=== PATIENT | male | born 1940 | race Caucasian/White ===

== ENCOUNTER 2018-02-07 15:23 | Inpatient (IN) | payer OTHER ==
--- OUTSIDE RECORDS SUMMARY | 2018-02-07 15:25 | XMS REPORT | Clinical Summary ---
:1940 Author Organization [facility] Address [address] [place] [address] Care Team Providers Name Role Phone Asked, No Pcp Primary Care Provider Unavailable Allergies Active Allergy Reactions Severity Noted Date Comments Lisinopril Hives, Itching High 06/24/2016 Penicillins 06/24/2016 Weakness in Limbs Current Medications Prescription Sig. Disp. Refills Start Date End Date Status isosorbide mononitrate Take 20 mg by Active (ISMO,MONOKET) 20 MG mouth 2 (two) tablet times a day. nitroglycerin Place 0.4 mg Active (NITROSTAT) 0.4 MG SL under the tongue tablet every 5 (five) minutes as needed for chest pain. omega-3 acid ethyl Take 1 g by mouth Active esters (LOVAZA) 1 gram 2 (two) times a capsule day. ranitidine (ZANTAC) 150 Take 150 mg by Active MG tablet mouth daily. cholecalciferol, Take 2,000 Units Active vitamin D3, (VITAMIN by mouth 2 (two) D3) 2,000 unit capsule times a day. capsule vitamin E 400 UNIT Take 400 Units by Active capsule mouth daily. warfarin (COUMADIN) 6 Take 6 mg by Active MG tablet mouth daily. amLODIPine (NORVASC) 10 Take 10 mg by Active mg tablet mouth daily. lysine (L-LYSINE) 500 Take 500 mg by Active mg tablet mouth daily. valsartan-hydrochloroth Take 1 tablet by Active iazide (DIOVAN HCT) mouth daily. 320-25 mg per tablet GLUCOSAMINE HCL/CHONDR Take 1 tablet by Active PORTILLO A NA (OSTEO BI-FLEX mouth 2 (two) ORAL) times a day. metoprolol tartrate Take 25 mg by Active (LOPRESSOR) 25 mg mouth daily. tablet metFORMIN (GLUCOPHAGE) Take 500 mg by Active 500 mg tablet mouth 2 (two) times a day with meals. amIODarone (PACERONE) Take 2 tablets 60 tablet 1 11/18/2016 Active 200 MG tablet (400 mg total) by mouth daily. 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 06/24/2016 Family History Medical History Relation Name Comments No Known Problems Father Relation Name Status Comments Father Social History Tobacco Use Types Packs/Day Years Used Date Never Smoker Alcohol Use Drinks/Week oz/Week Comments No Sex Assigned at Date Recorded Not on file Last Filed Vital Signs Not on file Plan of Treatment Health Maintenance Due Date Last Done Comments DIABETIC FOOT EXAM 1949 DIABETIC RETINAL EYE EXAM 1949 URINE MICROALBUMIN 1949 SHINGRIX VACCINE (#1) 1989 ZOSTER VACCINE 1999 PNEUMOCOCCAL POLYSACCHARIDE VACCINE AGE 65 AND OVER 2004 PNEUMOCOCCAL-13 2004 INFLUENZA VACCINE 02/22/2018 Implants Implanted 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I 08/24/20192087TC/52 / Implanted: 11/17/2016 (Quantity not on file) Leads or N/A MEDICAL [id number] / Electrodes or [id number] Accessories Envlp Impl Crdvrtr Dfb Antbctrl Fully Resorb Lg Aigissrx R - [id number] Cardiovascular N/A: TYRX PHARMA [id number] / Implanted: 11/17/2016 (Quantity not on file) Implants N/A INC / Defibrillator [place] - [id number] - [id number] Defibrillator N/A: [facility] TRACI 03/24/2018 [id number] / Implanted: Qty: 1 on 06/28/2016 by Jaycob Ghosh MD ICD Devices N/A MEDICAL [facility] [id number] / [id number] Durata Df4 - Active Tbp Single Shock, Icd Leads, Model 7120q-65 - [id number] Defibrillators N/A: [employer]I 08/24/2016 7120Q 65 / Implanted: 06/28/2016 (Quantity not on file) Devices ICD and N/A MEDICAL [id number] / Related Products [id number] Results Not on fileafter 02/06/2017 Insurance Payer Benefit Plan / Group Subscriber ID Type Phone Address MEDICARE MEDICARE PART A AND B xxxxxxxxxx Medicare [place], [place] AETNA AETNA [facility] INDEMNITY xxxxxxxxxx Indemnity Home: Dario HANDLEY [phone] [id number]
[2018-02-07] MEDS ORDERED: ONDANSETRON 4 MG/2 ML VIAL ONE (16:32)
[2018-02-07] MEDS ORDERED: NA CHLORIDE 0.9% 1,000 ML ONE (16:32)
[2018-02-07] MEDS ORDERED: FENTANYL CITR 100 MCG/2 ML ONE (16:32)
[2018-02-07 16:53] LABS: Absolute Lymphocytes (CBC) 1.1 K/uL (0.7-4.9); Absolute Monocytes 0.7 K/uL (0.1-1.3); Absolute Neutrophil 8.5 K/uL (1.8-8.0); Basophils % 0.7 % (0-1.3); Eosinophils % 0.4 % (0-4.4); Hematocrit 43.8 % (39.6-49.0); Lymphocytes % 10.1 % (15.3-44.8); MCV 97.3 fL (80-100); MPV 8.9 fL (7.6-11.3); Monocytes % 6.8 % (3.3-12.3)
[2018-02-07 16:57] LABS: Protime INR 1.57
[2018-02-07 17:21] LABS: Albumin 3.3 g/dL (3.4-5.0); Bilirubin Direct 0.2 mg/dL (0-0.2); Bilirubin Total 1.1 mg/dL (0.2-1.0); CKMB Creatine Kinase MB 2.1 ng/mL (0.3-3.6); Magnesium 2.2 mg/dL (1.8-2.4); Potassium 3.6 mmol/L (3.5-5.1)
--- NOTE | 2018-02-07 17:59 | EDPHYS ---
Physician Documentation [facility] Name: Sandro Leger Age: 77 yrs Sex: Male : 1940 Arrival Date: 02/07/2018 Time: 15:27 Bed 26 Private MD: ED Physician Kuldip Ibarra HPI: 02/07 16:23 This 77 yrs old Male presents to ER via EMS with complaints of tripped to rodolfo right hip. 16:23 The patient or guardian reports decreased range of motion, an injury, pain. sustained rodolfo from a fall. The complaints affect the right hip. Onset: The symptoms/episode began/occurred 2 day(s) ago. Modifying factors: The symptoms are alleviated by remaining still, the symptoms are aggravated by any movement, flexion, weight bearing. Associated signs and symptoms: Loss of consciousness: the patient experienced no loss of consciousness. Severity of symptoms: At their worst the symptoms were moderate, in the emergency department the symptoms are unchanged. The patient has not experienced similar symptoms in the past. Historical: - Allergies: 15:30 PENICILLINS; mg2 17:05 Lisinopril; mg2 - Home Meds: 15:30 Isosorbide Mononitrate Oral [Active]; Metformin Oral [Active]; Warfarin Oral [Active]; mg2 18:45 amiodarone 200 mg Oral tab once daily [Active]; atorvastatin 40 mg oral tab 1 tab once mg2 daily [Active]; valsartan-hydrochlorothiazide 320-12.5 mg oral tab 1 tab once daily [Active]; Eliquis 5 mg oral tab 1 tab 2 times per day [Active]; Bystolic 10 mg oral tab 1 tab once daily [Active]; 18:47 levothyroxine 25 mcg tab 1 tab once daily [Active]; mg2 - PMHx: 15:30 Diabetes - NIDDM; Hyperlipidemia; Hypertension; mg2 17:04 CVA; Myocardial infarction; mg2 - PSHx: 15:30 pacemaker; ICD; mg2 - Social history:: Smoking status: Patient/guardian denies using tobacco, Patient/guardian denies using alcohol, street drugs, IV drugs. - Ebola Screening: : No symptoms or risks identified at this time. - Family history:: not pertinent. ROS: 16:23 Constitutional: Negative for fever, chills, and weight loss, Eyes: Negative for injury, rodolfo pain, redness, and discharge, ENT: Negative for injury, pain, and discharge, Neck: Negative for injury, pain, and swelling, Cardiovascular: Negative for chest pain, palpitations, and edema, Respiratory: Negative for shortness of breath, cough, wheezing, and pleuritic chest pain, Abdomen/GI: Negative for abdominal pain, nausea, vomiting, diarrhea, and constipation, Back: Negative for injury and pain, : Negative for injury, bleeding, discharge, and swelling, Skin: Negative for injury, rash, and discoloration, Neuro: Negative for headache, weakness, numbness, tingling, and seizure, Psych: Negative for depression, anxiety, suicide ideation, homicidal ideation, and hallucinations, Allergy/Immunology: Negative for hives, rash, and allergies, Endocrine: Negative for neck swelling, polydipsia, polyuria, polyphagia, and marked weight changes, Hematologic/Lymphatic: Negative for swollen nodes, abnormal bleeding, and unusual bruising. 16:23 MS/extremity: Positive for decreased range of motion, pain, tenderness, of the right hip and right upper thigh. Exam: 16:23 Constitutional: This is a well developed, well nourished patient who is awake, alert, rodolfo and in no acute distress. Head/Face: Normocephalic, atraumatic. Eyes: Pupils equal round and reactive to light, extra-ocular motions intact. Lids and lashes normal. Conjunctiva and sclera are non-icteric and not injected. Cornea within normal limits. Periorbital areas with no swelling, redness, or edema. ENT: Nares patent. No nasal discharge, no septal abnormalities noted. Tympanic membranes are normal and external auditory canals are clear. Oropharynx with no redness, swelling, or masses, exudates, or evidence of obstruction, uvula midline. Mucous membranes moist. Neck: Trachea midline, no thyromegaly or masses palpated, and no cervical lymphadenopathy. Supple, full range of motion without nuchal rigidity, or vertebral point tenderness. No Meningismus. Chest/axilla: Normal chest wall appearance and motion. Nontender with no deformity. No lesions are appreciated. Cardiovascular: Regular rate and rhythm with a normal S1 and S2. No gallops, murmurs, or rubs. Normal PMI, no JVD. No pulse deficits. Respiratory: Lungs have equal breath sounds bilaterally, clear to auscultation and percussion. No rales, rhonchi or wheezes noted. No increased work of breathing, no retractions or nasal flaring. Abdomen/GI: Soft, non-tender, with normal bowel sounds. No distension or tympany. No guarding or rebound. No evidence of tenderness throughout. Back: No spinal tenderness. No costovertebral tenderness. Full range of motion. Male : Normal genitalia with no discharge or lesions. Skin: Warm, dry with normal turgor. Normal color with no rashes, no lesions, and no evidence of cellulitis. Neuro: Awake and alert, GCS 15, oriented to person, place, time, and situation. Cranial nerves II-XII grossly intact. Motor strength 5/5 in all extremities. Sensory grossly intact. Cerebellar exam normal. Normal gait. Psych: Awake, alert, with orientation to person, place and time. Behavior, mood, and affect are within normal limits. 16:23 Musculoskeletal/extremity: Extremities: noted in the right femoral area, right inguinal area and right hip: decreased ROM, pain, ROM: limited active range of motion due to pain, limited passive range of motion due to pain, Circulation is intact in all extremities. Sensation intact. Compartment Syndrome exam of affected extremity: is normal. DVT Exam: No signs of deep vein thrombosis. no swelling, negative Homans' sign noted on exam, no appreciated bluish discoloration, no erythema, no increased warmth, pain, tenderness. Vital Signs: 15:31 BP 158 / 100; Pulse 70; Resp 18; Temp 98.8; Pulse Ox 95% on R/A; Height 6 ft. 2 in. mg2 (187.96 cm); Pain 5/10; 16:57 BP 140 / 77; Pulse 70; Resp 18; Pulse Ox 100% ; Pain 3/10; mg2 18:26 BP 142 / 70; Pulse 70; Resp 18; Temp 97.7; Pulse Ox 96% on R/A; Pain 2/10; mg2 MDM: 15:37 Patient medically screened. [facility] 16:26 Data reviewed: vital signs, nurses notes, lab test result(s), EKG, radiologic studies, rodolfo plain films. 02/07 16:22 Order name: Basic Metabolic Panel; Complete Time: 17:54 [facility] 02/07 16:22 Order name: CBC with Diff; Complete Time: 17:54 [facility] 02/07 16:22 Order name: Ckmb; Complete Time: 17:54 [facility] 02/07 16:22 Order name: CPK; Complete Time: 17:54 [facility] 02/07 16:22 Order name: LFT's; Complete Time: 17:54 [facility] 02/07 16:22 Order name: Magnesium; Complete Time: 17:54 [facility] 02/07 16:22 Order name: NT PRO-BNP; Complete Time: 17:54 [facility] 02/07 16:22 Order name: PT-INR; Complete Time: 17:54 [facility] 02/07 16:22 Order name: Ptt, Activated; Complete Time: 17:54 [facility] 02/07 16:22 Order name: Troponin (emerg Dept Use Only); Complete Time: 17:54 [facility] 02/07 16:22 Order name: Type And Screen [facility] 02/07 18:07 Order name: Basic Metabolic Panel [facility] 02/07 18:07 Order name: Basic Metabolic Panel [facility] 02/07 18:07 Order name: CBC with Automated Diff [facility] 02/07 16:22 Order name: XRAY Chest (1 view) [facility] 02/07 16:22 Order name: EKG; Complete Time: 16:23 [facility] 02/07 16:22 Order name: Pelvis XRAY [facility] 02/07 16:22 Order name: Hip Right 2 View XRAY [facility] 02/07 18:07 Order name: CONS Physician Consult [facility] 02/07 18:07 Order name: CBC with Automated Diff [facility] 02/07 18:07 Order name: Troponin I [facility] 02/07 18:07 Order name: Troponin I [facility] 02/07 18:07 Order name: Troponin I [facility] 02/07 18:34 Order name: Urine Dipstick--Ancillary (enter results) 02/07 18:38 Order name: ABO/RH no charge [facility] 02/07 18:42 Order name: Urine Dipstick-Ancillary [facility] 02/07 16:22 Order name: Cardiac monitoring; Complete Time: 16:42 [facility] 02/07 16:22 Order name: EKG - Nurse/Tech; Complete Time: 16:42 [facility] 02/07 16:22 Order name: IV Saline Lock; Complete Time: 16:43 [facility] 02/07 16:22 Order name: Labs collected and sent; Complete Time: 16:43 [facility] 02/07 16:22 Order name: O2 Per Protocol; Complete Time: 16:43 [facility] 02/07 16:22 Order name: O2 Sat Monitoring; Complete Time: 16:43 [facility] 02/07 16:22 Order name: Urine Dipstick-Ancillary (obtain specimen); Complete Time: 18:52 [facility] 02/07 16:49 Order name: Labs - recollect needed 02/07 18:07 Order name: NPO EDMS 02/07 18:07 Order name: EKG Electrocardiogram [facility] 02/07 18:07 Order name: EKG Electrocardiogram [facility] 02/07 18:07 Order name: EKG Electrocardiogram [facility] 02/07 18:07 Order name: EKG Electrocardiogram [facility] 02/07 18:07 Order name: CONS Physician Consult ED[facility] Administered Medications: 16:43 Drug: Zofran 4 mg Route: IVP; Site: right antecubital; mg2 19:24 Follow up: Response: No adverse reaction; Nausea is decreased mg2 16:44 Drug: fentaNYL (PF) 25 mcg Route: IVP; Site: right antecubital; mg2 19:24 Follow up: Response: No adverse reaction; Pain is decreased mg2 16:45 Drug: NS 0.9% 1000 ml Route: IV; Rate: 125 ml/hr; Site: right antecubital; mg2 19:25 Follow up: Response: No adverse reaction; IV Status: Infusion continued upon transfer mg2 18:02 Drug: fentaNYL (PF) 25 mcg Route: IVP; Site: right antecubital; mg2 19:20 Follow up: Response: No adverse reaction; Pain is decreased mg2 Disposition: 02/07/18 17:58 Hospitalization ordered by Mehul Stern for Inpatient Admission. Preliminary diagnosis are Fall due to bumping against object, Displaced fracture of base of neck of right femur, Unspecified kidney failure. - Bed requested for Telemetry/MedSurg (Inpatient). - Status is Inpatient Admission. mg2 - Condition is Stable. - Problem is new. - Symptoms have improved. UTI on Admission? No Signatures: Dispatcher [employer] EDMS Analy Douglas Corey, MD MD cha Gardose, Michele, GREGORIO RN mg2 Corrections: (The following items were deleted from the chart) 18:45 15:30 Home Meds: lisinopril Oral; mg2 mg2 18:49 17:58 Hospitalization Ordered by Mehul Stern MD for Inpatient Admission. Preliminary bd diagnosis is Fall due to bumping against object; Displaced fracture of base of neck of right femur; Unspecified kidney failure. Bed requested for Telemetry/MedSurg (Inpatient). Status is Inpatient Admission. Condition is Stable. Problem is new. Symptoms have improved. UTI on Admission? No. rodolfo 19:54 18:49 02/07/2018 17:58 Hospitalization Ordered by Mehul Stern MD for Inpatient mg2 Admission. Preliminary diagnosis is Fall due to bumping against object; Displaced fracture of base of neck of right femur; Unspecified kidney failure. Bed requested for Telemetry/MedSurg (Inpatient). Status is Inpatient Admission. Condition is Stable. Problem is new. Symptoms have improved. UTI on Admission? No. bd
--- NOTE | 2018-02-07 17:59 | ER ---
Nurse's Notes [facility] Name: Sandro Leger Age: 77 yrs Sex: Male : 1940 Arrival Date: 02/07/2018 Time: 15:27 Bed 26 Private MD: Diagnosis: Fall due to bumping against object;Displaced fracture of base of neck of right femur;Unspecified kidney failure Presentation: 02/07 15:27 Presenting complaint: EMS states: the patient was walking and fell on the ground, mg2 sustained pain in the right hip. denies LOC and head injury. no nausea and vomiting. Transition of care: patient was not received from another setting of care. Onset of symptoms was February 07, 2018. Risk Assessment: Do you want to hurt yourself or someone else? Patient reports no desire to harm self or others. Initial Sepsis Screen: Does the patient meet any 2 criteria? No. Patient's initial sepsis screen is negative. Does the patient have a suspected source of infection? No. Patient's initial sepsis screen is negative. Care prior to arrival: None. 15:27 Method Of Arrival: EMS mg2 15:27 Acuity: ADAM 3 mg2 Historical: - Allergies: 15:30 PENICILLINS; mg2 17:05 Lisinopril; mg2 - Home Meds: 15:30 Isosorbide Mononitrate Oral [Active]; Metformin Oral [Active]; Warfarin Oral [Active]; mg2 18:45 amiodarone 200 mg Oral tab once daily [Active]; atorvastatin 40 mg oral tab 1 tab once mg2 daily [Active]; valsartan-hydrochlorothiazide 320-12.5 mg oral tab 1 tab once daily [Active]; Eliquis 5 mg oral tab 1 tab 2 times per day [Active]; Bystolic 10 mg oral tab 1 tab once daily [Active]; 18:47 levothyroxine 25 mcg tab 1 tab once daily [Active]; mg2 - PMHx: 15:30 Diabetes - NIDDM; Hyperlipidemia; Hypertension; mg2 17:04 CVA; Myocardial infarction; mg2 - PSHx: 15:30 pacemaker; ICD; mg2 - Social history:: Smoking status: Patient/guardian denies using tobacco, Patient/guardian denies using alcohol, street drugs, IV drugs. - Ebola Screening: : No symptoms or risks identified at this time. - Family history:: not pertinent. Screenin:32 Abuse screen: Denies threats or abuse. Denies injuries from another. Nutritional mg2 screening: No deficits noted. Tuberculosis screening: No symptoms or risk factors identified. Fall Risk Fall in past 12 months (25 points). Assessment: 15:49 General: Appears in no apparent distress. Behavior is calm, cooperative. Pain: mg2 Complains of pain in right hip Pain does not radiate. Pain currently is 5 out of 10 on a pain scale. Quality of pain is described as aching, Pain began suddenly, this morning Is intermittent, Alleviated by rest, Aggravated by increased activity, repositioning, weight bearing. Neuro: Level of Consciousness is awake, alert, obeys commands, Oriented to person, place, time. Cardiovascular: Capillary refill < 3 seconds Patient's skin is warm and dry. Respiratory: Airway is patent Respiratory effort is even, unlabored, Respiratory pattern is regular, symmetrical. GI: No signs and/or symptoms were reported involving the gastrointestinal system. : No signs and/or symptoms were reported regarding the genitourinary system. EENT: No signs and/or symptoms were reported regarding the EENT system. Derm: Skin is intact, Skin is pink, warm \T\ dry. normal. Musculoskeletal: Reports pain in right hip. Vital Signs: 15:31 BP 158 / 100; Pulse 70; Resp 18; Temp 98.8; Pulse Ox 95% on R/A; Height 6 ft. 2 in. mg2 (187.96 cm); Pain 5/10; 16:57 BP 140 / 77; Pulse 70; Resp 18; Pulse Ox 100% ; Pain 3/10; mg2 18:26 BP 142 / 70; Pulse 70; Resp 18; Temp 97.7; Pulse Ox 96% on R/A; Pain 2/10; mg2 ED Course: 15:27 Patient arrived in ED. mg2 15:29 Triage completed. mg2 15:32 Arm band placed on. mg2 15:37 Kuldip Ibarra MD is Attending Physician. [facility] 15:48 Boogie Ndiaye, GREGORIO is Primary Nurse. mg2 15:58 Patient has correct armband on for positive identification. Bed in low position. Side mg2 rails up X2. 16:12 Door closed. Warm blanket given. mg2 16:46 EKG done, by product safety technician. reviewed by Kuldip Ibarra MD. 3 17:49 XRAY Chest (1 view) In Process Unspecified. EDMS 17:49 Pelvis XRAY In Process Unspecified. EDMS 17:49 Hip Right 2 View XRAY In Process Unspecified. EDMS 17:55 Mehul Stern MD is Hospitalizing Provider. rodolfo 19:48 No provider procedures requiring assistance completed. Patient admitted, IV remains in mg2 place. Administered Medications: 16:43 Drug: Zofran 4 mg Route: IVP; Site: right antecubital; mg2 19:24 Follow up: Response: No adverse reaction; Nausea is decreased mg2 16:44 Drug: fentaNYL (PF) 25 mcg Route: IVP; Site: right antecubital; mg2 19:24 Follow up: Response: No adverse reaction; Pain is decreased mg2 16:45 Drug: NS 0.9% 1000 ml Route: IV; Rate: 125 ml/hr; Site: right antecubital; mg2 19:25 Follow up: Response: No adverse reaction; IV Status: Infusion continued upon transfer mg2 18:02 Drug: fentaNYL (PF) 25 mcg Route: IVP; Site: right antecubital; mg2 19:20 Follow up: Response: No adverse reaction; Pain is decreased mg2 Outcome: 17:58 Decision to Hospitalize by Provider. rodolfo 19:47 Admitted to Med/surg accompanied by tech, via stretcher, room 209, with chart, Report mg2 called to Nurse Erna 19:47 Condition: stable 19:47 Instructed on the need for admit, Demonstrated understanding of instructions. 19:54 Patient left the ED. mg2 Signatures: Dispatcher [employer] EDMS Kuldip Ibarra MD MD cha Gardose, Michele, RN RN mg2 Meg Rankin sm3 Corrections: (The following items were deleted from the chart) 17:05 15:27 Acuity: ADAM 4 mg2 mg2 18:34 18:26 Pulse 70bpm; Resp 18bpm; Pulse Ox 96% RA; Pain 2/10; mg2 mg2 18:45 15:30 Home Meds: lisinopril Oral; mg2 mg2
[2018-02-07] MEDS ORDERED: ACETAMINOPHEN 500 MG TAB PO PRN (18:02)
[2018-02-07] MEDS ORDERED: ONDANSETRON 4 MG/2 ML VIAL IV PRN (18:02)
[2018-02-07] MEDS ORDERED: D50W 25 GM/50 ML SYRINGE IV PRN (18:05)
[2018-02-07] MEDS ORDERED: GLUCAGON 1 MG/VIAL IM PRN (18:05)
--- NOTE | 2018-02-07 18:32 | RAD REPORT ---
EXAM DESCRIPTION: RAD - Chest Single View - 02/07/2018 5:49 pm CLINICAL HISTORY: Cough, shortness of breath COMPARISON: October 2016 TECHNIQUE: AP portable chest image was obtained 1719 hours . FINDINGS: No peripheral mass or consolidation. Left base is limited but no acute finding suspected. No failure or volume overload. Heart size is prominent but stable. Upper lobe vasculature within norm al limits. Right-sided pacemaker and left-sided defibrillator in place. Trachea is midline. No pneumo thorax or pleural effusion. Left costophrenic angle blunting is believed to be due to the heart size and may be pericardial fat. No gross bony abnormality seen. No acute aortic findings suspected. IMPRESSION: No acute cardiopulmonary process. Above detailed chest findings are similar to October 2016.
[2018-02-07 18:42] LABS: Urine Blood NEGATIVE (NEG); Urine Glucose 2+ (NEG); Urine Protein 1+ (NEG); Urine Specific Gravity >1.030 (1.005-1.030); Urine pH 5.5 (5.0-7.0)
[2018-02-07] MEDS: NA CHLORIDE 0.9% 1,000 ML IV SCH (19:00)
--- NOTE | 2018-02-07 19:07 | RAD REPORT ---
EXAM DESCRIPTION: RAD - Pelvis - 02/07/2018 5:49 pm CLINICAL HISTORY: Trauma, pelvic and hip pain, leg wound COMPARISON: None. TECHNIQUE: AP imaging of the pelvis was obtained. FINDINGS: Lower lumbar degenerative changes are present partially imaged. Minimal SI joint degenerat zuleyma changes are present. Sacral ala fracture is not identifiable. No fracture of the bony pelvis iden tifiable. Right inferior pubic ramus assessment is limited due to positioning. Advanced degenerative change seen at the left hip joint. There is partial flattening of the superior left femoral head. Degenerative cystic changes are seen and there is significant joint space narrowin g superiorly. Joint space narrowing and degenerative changes involve the right hip joint as well. Oblique fracture is present in the right femur. This is a predominantly intertrochanteric fracture. L hi trochanter remains attached to the femur. Femoral neck- shaft angle is diminished with superior migration of the main shaft of the femur. Pathologic process is not suspected. IMPRESSION: Right femur intertrochanteric fracture. No pelvic fractures suspected. Left greater than right hip joint degenerative changes are present.
--- NOTE | 2018-02-07 19:08 | RAD REPORT ---
EXAM DESCRIPTION: RAD - Hip Right 2 View - 02/07/2018 5:49 pm CLINICAL HISTORY: Trauma, pelvic and hip pain COMPARISON: None. FINDINGS: AP and cross-table lateral views were obtained. Cross-table imaging is limited. An oblique fracture is present at the base intertrochanteric junction. Fracture appears to be predominantly int ertrochanteric. No pathologic component. Right hip joint degenerative changes are present. No fractur e of the imaged portions right hemipelvis. IMPRESSION: Predominately intertrochanteric fracture right femur. No pathologic etiology suspected.
[2018-02-07] MEDS ORDERED: ACETAMINOPHEN 500 MG TAB ONE (19:45)
[2018-02-07] MEDS: INSULIN -REGULAR HUMAN 50 UNIT/0.5 ML ML SQ SCH (21:00)
--- NOTE | 2018-02-07 21:21 | P.HP ---
Certification for Inpatient Patient admitted to: Inpatient With expected LOS: >2 Midnights Practitioner: I am a practitioner with admitting privileges, knowledge of patient current condition, hospital course, and medical plan of care. Services: Services provided to patient in accordance with Admission requirements found in Title 42 Section 412.3 of the Code of Federal Regulations Patient History Date of Service: 02/07/18 Reason for admission: FELL ON RIGHT SIDE History of Present Illness: MR. FERGUSON HAS A FIB, HTN, MILD MEMORY LOSS, COMES WITH FALL ON R SIDE, TRIPPED ON AN ELEVATION IN THE YARD AND BROKE R HIP. Allergies lisinopril Allergy (Mild, Verified 02/07/18 20:17) Itching Penicillins Allergy (Mild, Verified 02/07/18 20:17) weakness Home Medications: Amiodarone HCl/D5w [Amiodarone 150 mg/100 ml-D5w] 200 mg PO DAILY 02/07/18 Apixaban [Eliquis] 5 mg PO BID 02/07/18 Atorvastatin Calcium [Lipitor] 40 mg PO BEDTIME 02/07/18 Isosorbide Mononitrate [Isosorbide Mononitrate ER] 60 mg PO DAILY 02/07/18 Levothyroxine [Synthroid*] 25 mcg PO DAILY 02/07/18 Metformin HCl 500 mg PO BID 6AM 6PM 02/07/18 Nebivolol HCl [Bystolic*] 10 mg PO DAILY 02/07/18 Valsartan/Hydrochlorothiazide [Valsartan-Hctz 320-12.5 mg Tab] 1 tab PO DAILY - Past Medical/Surgical History Has patient received pneumonia vaccine in the past: Yes Diabetic: Yes -: DM -: HTN -: DEMENTIA -: AR X3 -: CVA -: CATARACT SX - Social History Smoking Status: Never smoker Alcohol use: No CD- Drugs: No Caffeine use: Yes Place of Residence: Home Review of Systems 10-point ROS is otherwise unremarkable Musculoskeletal: Leg Pain, As per HPI Physical Examination - Vital Signs Temperature: 97.7 F Blood Pressure: 142/70 Pulse: 70 Respirations: 18 - Physical Exam General: Alert, Mild distress, Moderate distress HEENT: Atraumatic, PERRLA, Mucous membr. moist/pink, EOMI, Sclerae nonicteric Neck: Supple, 2+ carotid pulse no bruit, No LAD, Without JVD or thyroid abnormality Respiratory: Clear to auscultation bilaterally, Normal air movement Cardiovascular: Regular rate/rhythm, Normal S1 S2 Gastrointestinal: Normal bowel sounds, No tenderness Musculoskeletal: Other Integumentary: No rashes Neurological: Normal gait, Normal speech, Normal strength at 5/5 x4 extr, Normal tone, Normal affect Lymphatics: No axilla or inguinal lymphadenopathy - Studies Laboratory Data (last 24 hrs) 02/07/18 16:30: PT 18.6 H, INR 1.57, APTT 31.2 02/07/18 16:30: WBC 10.4, Hgb 14.9, Hct 43.8, Plt Count 219 02/07/18 16:30: Sodium 137, Potassium 3.6, BUN 17, Creatinine 1.60 H, Glucose 180 H, Magnesium 2.2, Total Bilirubin 1.1 H, AST 33, ALT 40, Alkaline Phosphatase 68 Assessment and Plan - Problems (Diagnosis) (1) Hip fracture requiring operative repair Current Visit: Yes Status: Acute Plan: SURGERY IN AM ELIQUIS ON HOLD AFTER THIS AM DOSE 24 HOUR HOLDING SHOULD BE OKAY FOR SURGERY CHECK FOR BMD Qualifiers: Encounter type: initial encounter Fracture type: closed Laterality: right Qualified Code(s): S72.001A - Fracture of unspecified part of neck of right femur, initial encounter for closed fracture (2) A-fib Current Visit: Yes Status: Chronic Plan: CONTROLLED. Qualifiers: Atrial fibrillation type: chronic Qualified Code(s): I48.2 - Chronic atrial fibrillation (3) HTN (hypertension) Current Visit: Yes Status: Chronic (4) Preop cardiovascular exam Current Visit: Yes Status: Acute Plan: MILD TO MODERATE RISK FOR SURGERY FROM AGE AND COMORBIDITIES. HE HAS NO ACUTE CARDIAC SYMPTOMS. - Advance Directives Does patient have a Living Will: No Does patient have a Durable POA for Healthcare: Yes
[2018-02-07] MEDS: FAMOTIDINE 20 MG/2 ML VIAL IV SCH (22:03)
[2018-02-08] MEDS: FENTANYL CITR 100 MCG/2 ML IV PRN ×3 (00:36→10:56)
[2018-02-08] MEDS: NA CHLORIDE 0.9% 1,000 ML IV SCH ×2 (04:38→17:12)
[2018-02-08] MEDS: METFORMIN HCL 500 MG TAB PO SCH ×2 (05:11→17:12)
--- NOTE | 2018-02-08 06:02 | EKG ---
Test Date: 2018-02-07 Test Time: 16:39:15 Hunter Guide: SANDHYA MEASUREMENT RESULTS: Intervals: Rate: 70 NH: QRSD: 162 QT: 554 QTc: 598 Baker: P: 115 NH: QRS: 186 T: 62 INTERPRETIVE STATEMENTS: AV dual-paced rhythm Biventricular pacemaker detected Abnormal ECG Compared to ECG 11/10/2016 23:26:50 Sinus rhythm no longer present First degree AV block no longer present Left-axis deviation no longer present Left ventricular hypertrophy no longer present Early repolarization no longer present Myocardial infarct finding no longer present Electronically Signed On 02-08-18 06:02:15 CDT by Andrez Bradley
[2018-02-08 06:35] LABS: Absolute Lymphocytes (CBC) 1.6 K/uL (0.7-4.9); Absolute Monocytes 1.3 K/uL (0.1-1.3); Absolute Neutrophil 7.5 K/uL (1.8-8.0); Basophils % 0.8 % (0-1.3); Eosinophils % 0.4 % (0-4.4); Hematocrit 40.1 % (39.6-49.0); Lymphocytes % 14.9 % (15.3-44.8); MCH 33.5 pg (27.0-35.0); MCV 95.7 fL (80-100); MPV 8.9 fL (7.6-11.3); Monocytes % 12.3 % (3.3-12.3); RBC Red Blood Cell Count 4.18 M/uL (4.33-5.43)
[2018-02-08 07:04] LABS: Potassium 3.3 mmol/L (3.5-5.1)
[2018-02-08] MEDS: INSULIN -REGULAR HUMAN 50 UNIT/0.5 ML ML SQ SCH ×4 (07:30→21:00)
--- NOTE | 2018-02-08 08:35 | ECHO ---
HEIGHT: 6 ft 1 in WEIGHT: 220 lb 9.6 oz DATE OF STUDY: 02/08/[address]: Andrez Bradley MD 2-DIMENSIONAL: YES M.MODE: YES DOPPLER: YES COLOR FLOW: YES TDS: NO PORTABLE: NO DEFINITY: NO BUBBLE STUDY: NO DIAGNOSIS: CONGESTIVE HEART FAILURE, CORONARY ARTERY DISEASE CARDIAC HISTORY: CATHERIZATION: SURGERY: PROSTHETIC VALVE: PACEMAKER: YES MEASUREMENTS (cm) DIASTOLIC (NORMALS) SYSTOLIC (NORMALS) IVSd 1.4 (0.6-1.2) LA Diam 6.2 (1.9-4.0) LVEF 40-45% LVIDd 4.7 (3.5-5.7) LVIDs 3.6 (2.0-3.5) %FS 23% LVPWd 1.3 (0.6-1.2) Ao Diam 4.3 (2.0-3.7) 2 DIMENSIONAL ASSESSMENT: RIGHT ATRIUM: DILATED LEFT ATRIUM: DILATED RIGHT VENTRICLE: PACEMAKER CATHETER LEFT VENTRICLE: LEFT VENTRICULAR HYPERTROPHY TRICUSPID VALVE: NORMAL MITRAL VALVE: NORMAL PULMONIC VALVE: NORMAL AORTIC VALVE: NORMAL PERICARDIAL EFFUSION: NONE AORTIC ROOT: NORMAL LEFT VENTRICULAR WALL MOTION: POSTERIOBASAL AKINESIS. DOPPLER/COLOR FLOW: MILD MITRAL REGURGITATION. COMMENTS: DEPRESSED LEFT VENTRICULAR EJECTION FRACTION WITH WALL MOTION ABNORMALITY. DILATED LEFT AND RIGHT ATRIUM. PACEMAKER CATHETER IN RIGHT VENTRICLE. LEFT VENTRICULAR HYPERTROPHY. MILD MITRAL REGURGITATION. TECHNOLOGIST: Neva BRAVO
[2018-02-08] MEDS: NEBIVOLOL HCL 20 MG TABLET PO SCH (09:06)
[2018-02-08] MEDS: LOSARTAN POTASSIUM 50 MG TABLET PO SCH (09:07)
[2018-02-08] MEDS: ISOSORBIDE MONO SR 60 MG TAB PO SCH (09:07)
[2018-02-08] MEDS: LEVOTHYROXINE SOD 0.05 MG TABLET PO SCH (09:07)
[2018-02-08] MEDS: FAMOTIDINE 20 MG/2 ML VIAL IV SCH ×2 (09:07→21:14)
[2018-02-08] MEDS: AMIODARONE HCL 200 MG TAB PO SCH (09:08)
--- NOTE | 2018-02-08 09:35 | EKG ---
Test Date: 2018-02-08 Test Time: 07:56:56 Farm Contractor: LAURA MEASUREMENT RESULTS: Intervals: Rate: 70 CT: 104 QRSD: 164 QT: 544 QTc: 587 [place]: P: 3 CT: 104 QRS: 241 T: 91 INTERPRETIVE STATEMENTS: AV sequential or dual chamber electronic pacemaker Compared to ECG 02/07/2018 16:39:15 no significant change from previous ECG Electronically Signed On 02-08-18 09:35:26 CDT by Andrez Bradley
--- NOTE | 2018-02-08 12:25 | CON ---
History Of Present Illness: This is a 77-year-old man. He is in the hospital because he fell, his r ight hip or upper femur not the femoral neck appears to have a fracture, open reduction and internal fixation is the likely recommendation from Orthopedic Surgery, although I have not seen their notes a s of yet. I am asked to evaluate his heart before he goes through surgery. Mr. Leger has a hi story of CAD. He has had atrial fibrillation. He has had coronary bypass surgery. The patient is d emented, cannot give a cogent history. He denies having bypass surgery, but we know from old records it has been done. He has sternal wires. He also has depressed ejection fraction, and he has a defi brillator. The defibrillator was implanted June 2016 since then always followups with Dr. Mckeon. Dr. Mckeon is kindly looking into his records to see what the status of the defibrillator is. The p atient denies having chest pain or shortness of breath. He does not use tobacco now, did remotely. Home Medications: Have been amiodarone 200 mg, metformin, isosorbide, atorvastatin, valsartan, hydro chlorothiazide, apixaban, nebivolol, and levothyroxine. Physical Examination: General: Mr. Leger is alert, but he is very confused, does not have a memory for any details. Several details that I know were true he had forgotten for example the bypass surgery. Neck: He does not have a carotid bruit. Lungs: Clear. Heart: Reveals a laterally displaced apical impulse. There is no significant murmur. Abdomen: Soft. Extremities: Trace edema. There are cutaneous changes of chronic venous stasis. Distal pulses dimi nished. His electrocardiogram shows sequential AV pacing and the pacemaker appears to be biventricular pacing , although the QRS complex is still quite wide. His chest x-ray reveals an old pacemaker on the righ t. A newer defibrillator on the left. X-rays of the pelvis reveal an upper femur fracture close to the femoral neck, but not within the femoral neck. I think the patient is an acceptable risk for having his surgery. I want to do an echocardiogram pre op, so we have that information, also want to get information from Dr. Mckeon about the defibrillator details. I do not think it necessarily needs to be interrogated and I will base that on Dr. Mckeon's assessment who will be on hand to deal with cardiac complications. I suspect his ejection fraction i s low and minimizing intravenous fluid use during the surgery will be important. LEXIS Voice ID: [id number] Report ID: [id number]
--- NOTE | 2018-02-08 13:17 | P.CNS ---
Date of Consult: 02/08/18 Reason for Consult: PAIN RIGHT HIP Requesting Physician: Mehul Stern V Chief Complaint: FELL ON RIGHT SIDE History of Present Illness: PATIENT WAS OUTSIDE WITHOUT WALKER AND FELL ONTO HIS RIGHT SIDE WITH IMMEDIATE PAIN. PATIENT PRESENTED TO ED 2 D LATER WITH INCREASING PAIN AND LIMITATION. X- RAY REVEALED INTERTROCHANTERIC RIGHT HIP FRACTURE. Allergies lisinopril Allergy (Mild, Verified 02/07/18 20:17) Itching Penicillins Allergy (Mild, Verified 02/07/18 20:17) weakness Home Medications: Amiodarone HCl/D5w [Amiodarone 150 mg/100 ml-D5w] 200 mg PO DAILY 02/07/18 Apixaban [Eliquis] 5 mg PO BID 02/07/18 Atorvastatin Calcium [Lipitor] 40 mg PO BEDTIME 02/07/18 Isosorbide Mononitrate [Isosorbide Mononitrate ER] 60 mg PO DAILY 02/07/18 Levothyroxine [Synthroid*] 25 mcg PO DAILY 02/07/18 Metformin HCl 500 mg PO BID 6AM 6PM 02/07/18 Nebivolol HCl [Bystolic*] 10 mg PO DAILY 02/07/18 Valsartan/Hydrochlorothiazide [Valsartan-Hctz 320-12.5 mg Tab] 1 tab PO DAILY - Past Medical/Surgical History Diabetic: Yes -: DM -: HTN -: DEMENTIA -: NV X3 -: CVA -: CATARACT SX - Social History Alcohol use: No CD- Drugs: No Caffeine use: Yes Place of Residence: Home Review of Systems 10-point ROS is otherwise unremarkable Physical Examination Temp Pulse Resp BP Pulse Ox 98.8 F 69 18 198/79 H 94 02/08/18 08:00 02/08/18 09:06 02/08/18 08:00 02/08/18 09:06 02/08/18 08:00 General: Oriented x3, Cooperative, Mild distress HEENT: Atraumatic, Normocephalic, Mucous membr. moist/pink Neck: Supple Respiratory: Clear to auscultation bilaterally, Normal air movement Cardiovascular: Regular rate/rhythm (PACEMAKER) Capillary refill: >2 Seconds Gastrointestinal: Normal bowel sounds, Soft and benign, Non-distended Musculoskeletal: Tenderness (IN BELL'S TRACTION RLE, PAIN WITH ANY MOVEMENT OF TRUNK OR LEG.) Integumentary: No rashes, No breakdown, No significant lesion Neurological: Sensation intact Lymphatics: No axilla or inguinal lymphadenopathy External genitalia: Deferred Rectal: Deferred Laboratory Data (last 24 hrs) 02/07/18 16:30: PT 18.6 H, INR 1.57, APTT 31.2 02/07/18 16:30: WBC 10.4, Hgb 14.9, Hct 43.8, Plt Count 219 02/07/18 16:30: Sodium 137, Potassium 3.6, BUN 17, Creatinine 1.60 H, Glucose 180 H, Magnesium 2.2, Total Bilirubin 1.1 H, AST 33, ALT 40, Alkaline Phosphatase 68 Imagings Data: AP PELVIS 1V, RT. HIP 2V 02/06/18 IMPRESSION: Right femur intertrochanteric fracture. No pelvic fractures suspected. Left greater than right hip joint degenerative changes are present. Dictated By: Juanito Delgado MD 02/07/18 1907 - Problems (1) Hip fracture requiring operative repair Onset Date: 02/08/18 Current Visit: Yes Status: Acute Plan: PATIENT ELECTS TO PROCEED WITH INTRAMEDULLARY NAIL FIXATION RIGHT HIP INTERTROCHANTERIC HIP FRACTURE.SURGERY PLANNED FOR ~12:30 PM, 02/09/18. DISCUSSED WITH DR. STERN, INR 1.57, HOLDING ELIQUIS. Qualifiers: Encounter type: initial encounter Fracture type: closed Laterality: right Qualified Code(s): S72.001A - Fracture of unspecified part of neck of right femur, initial encounter for closed fracture
--- NOTE | 2018-02-08 17:57 | P.PN ---
Subjective Date of Service: 02/08/18 Chief Complaint: FELL ON RIGHT SIDE Subjective: No new changes (echo today. Dr. White will do surgery in am.) Review of Systems 10-point ROS is otherwise unremarkable General: Weakness, Malaise Physical Examination - Vital Signs Temperature: 98.7 F Blood Pressure: 153/79 Pulse: 70 Respirations: 18 Pulse Ox (%): 93 - Physical Exam General: Alert, In no apparent distress HEENT: Atraumatic, PERRLA, EOMI Neck: Supple, JVD not distended Respiratory: Clear to auscultation bilaterally, Normal air movement Cardiovascular: Regular rate/rhythm, Normal S1 S2 Gastrointestinal: Normal bowel sounds, No tenderness Musculoskeletal: No tenderness Integumentary: No rashes Neurological: Normal speech, Normal tone, Normal affect Lymphatics: No axilla or inguinal lymphadenopathy - Studies Medications List Reviewed: Yes Assessment And Plan - Current Problems (Diagnosis) (1) Hip fracture requiring operative repair Onset Date: 02/08/18 Current Visit: Yes Status: Acute Plan: SURGERY IN AM ELIQUIS ON HOLD AFTER THIS AM DOSE 24 HOUR HOLDING SHOULD BE OKAY FOR SURGERY CHECK FOR BMD Echo mild low ef surgery in am. Qualifiers: Encounter type: initial encounter Fracture type: closed Laterality: right Qualified Code(s): S72.001A - Fracture of unspecified part of neck of right femur, initial encounter for closed fracture (2) A-fib Onset Date: 02/08/18 Current Visit: Yes Status: Chronic Plan: CONTROLLED. Qualifiers: Atrial fibrillation type: chronic Qualified Code(s): I48.2 - Chronic atrial fibrillation (3) HTN (hypertension) Onset Date: 02/08/18 Current Visit: Yes Status: Chronic (4) Preop cardiovascular exam Onset Date: 02/08/18 Current Visit: Yes Status: Acute Plan: MILD TO MODERATE RISK FOR SURGERY FROM AGE AND COMORBIDITIES. HE HAS NO ACUTE CARDIAC SYMPTOMS.
[2018-02-08] MEDS: ATORVASTATIN 40 MG TAB PO SCH (21:14)
[2018-02-09] MEDS: NA CHLORIDE 0.9% 1,000 ML IV SCH ×3 (00:44→19:00)
[2018-02-09] MEDS: FENTANYL CITR 100 MCG/2 ML IV PRN (03:43)
[2018-02-09] MEDS: METFORMIN HCL 500 MG TAB PO SCH ×2 (05:18→17:44)
[2018-02-09] MEDS: INSULIN -REGULAR HUMAN 50 UNIT/0.5 ML ML SQ SCH ×4 (07:30→20:49)
[2018-02-09] MEDS ORDERED: CEFAZOLIN/SWI 1gm 1 GM/10 ML SYR IV SCH (08:30)
[2018-02-09] MEDS: FAMOTIDINE 20 MG/2 ML VIAL IV SCH (08:59)
[2018-02-09] MEDS: NEBIVOLOL HCL 20 MG TABLET PO SCH (09:00)
[2018-02-09] MEDS: NEBIVOLOL HCL 5 MG TAB PO SCH (09:00)
[2018-02-09] MEDS: ISOSORBIDE MONO SR 60 MG TAB PO SCH (09:00)
[2018-02-09] MEDS: AMIODARONE HCL 200 MG TAB PO SCH (09:00)
[2018-02-09] MEDS: LEVOTHYROXINE SOD 0.05 MG TABLET PO SCH (09:01)
[2018-02-09] MEDS: LOSARTAN POTASSIUM 50 MG TABLET PO SCH (09:02)
[2018-02-09 09:15] LABS: Protime INR 1.22
[2018-02-09] MEDS ORDERED: FENTANYL CITR 100 MCG/2 ML ONE ×2 (11:58→13:40)
[2018-02-09] MEDS ORDERED: PROPOFOL 200 MG/20 ML VIAL IV ONE (11:58)
[2018-02-09] MEDS ORDERED: MIDAZOLAM HCL 2 MG/2 ML INJ ONE (11:58)
[2018-02-09] MEDS ORDERED: LIDOCAINE 2% MPF 5 ML VIAL ONE (11:58)
[2018-02-09] MEDS ORDERED: TRANEXAMIC ACID 1,000 MG in NA CHLORIDE 0.9% 50 ML IV SCH (12:00)
[2018-02-09] MEDS ORDERED: NA CHLORIDE 0.9% 1,000 ML ONE ×2 (12:01→14:36)
[2018-02-09] MEDS ORDERED: CEFAZOLIN/SWI 1gm 1 GM/10 ML SYR ONE (12:07)
[2018-02-09] MEDS ORDERED: EPHEDRINE SULF 50 MG/10 ML SYR ONE (13:04)
[2018-02-09] MEDS ORDERED: BUPIVACA 0.25%/EPI 0.0005%/PF 30 ML VIAL ONE (14:12)
--- NOTE | 2018-02-09 14:48 | P.BOP ---
Preoperative diagnosis: CLOSED INTERTROCH. FRACTURE RT. HIP, DISPLACED Postoperative diagnosis: SAME Primary procedure: IM NAIL FIXATION RT. HIP IT FRACTURE Forming Machine Upkeep Mechanic: BETSEY LYN (GAVE NECESSARY 1ST ASSIST THROUGHOUT CASE) Estimated blood loss: 200 mL Specimen: NONE Findings: GOOD ALIGNMENT ON FRACTURE TABLE ACCEPTED IM NAIL USED WSUCCESSFUL FIXATION Anesthesia: General Complications: None Implants: hip [id number];lag [id number];cortical [id number] Fluids & blood products: inj 30 mL 0.25% Marcaine w/EPI Transferred to: Recovery Room Condition: Good
--- NOTE | 2018-02-09 14:50 | RAD REPORT ---
EXAM DESCRIPTION: RAD - Hip In Or - 02/09/2018 2:44 pm CLINICAL HISTORY: IM RODDING RT HIP COMPARISON: Pelvis dated 02/07/2018 FINDINGS: Fluoroscopic imaging of the right hip is submitted as part of a intramedullary rodding pro cedure. Details of the procedure are not available. Total fluoro time 0.9 minutes.
[2018-02-09 15:06] LABS: Hematocrit 43.1 % (39.6-49.0)
[2018-02-09] MEDS: CEFAZOLIN/SWI 1gm 1 GM/10 ML SYR IV SCH ×2 (17:44→23:46)
[2018-02-09] MEDS ORDERED: CEFAZOLIN/NS 1gm 1 GM/50 ML BAG IVPB SCH (18:00)
--- NOTE | 2018-02-09 18:06 | P.PN ---
Subjective Date of Service: 02/09/18 Chief Complaint: FELL ON RIGHT SIDE SURGERY TODAY TAKEN FO RSURGERY TODAY. Physical Examination - Vital Signs Temperature: 97.4 F Blood Pressure: 177/89 Pulse: 70 Respirations: 18 Pulse Ox (%): 96 - Studies Medications List Reviewed: Yes Assessment And Plan - Current Problems (Diagnosis) (1) Hip fracture requiring operative repair Onset Date: 02/08/18 Current Visit: Yes Status: Acute Plan: SURGERY IN AM ELIQUIS ON HOLD AFTER THIS AM DOSE 24 HOUR HOLDING SHOULD BE OKAY FOR SURGERY CHECK FOR BMD Echo mild low ef surgery in am. Qualifiers: Encounter type: initial encounter Fracture type: closed Laterality: right Qualified Code(s): S72.001A - Fracture of unspecified part of neck of right femur, initial encounter for closed fracture (2) A-fib Onset Date: 02/08/18 Current Visit: Yes Status: Chronic Plan: CONTROLLED. Qualifiers: Atrial fibrillation type: chronic Qualified Code(s): I48.2 - Chronic atrial fibrillation (3) HTN (hypertension) Onset Date: 02/08/18 Current Visit: Yes Status: Chronic Plan: RAISE LOSARTAN TO 100 MG DAILY REDUCE IV FLUIDS. (4) Preop cardiovascular exam Onset Date: 02/08/18 Current Visit: Yes Status: Acute Plan: MILD TO MODERATE RISK FOR SURGERY FROM AGE AND COMORBIDITIES. HE HAS NO ACUTE CARDIAC SYMPTOMS.
[2018-02-09] MEDS: FAMOTIDINE 20 MG TAB PO SCH (20:49)
[2018-02-09] MEDS: ATORVASTATIN 40 MG TAB PO SCH (20:49)
[2018-02-09] MEDS: HYDROCODONE/APAP 5/325 MG TAB PO PRN (20:58)
[2018-02-09 23:51] VITALS: BMI 28.8
[2018-02-10] MEDS: METFORMIN HCL 500 MG TAB PO SCH ×2 (05:34→18:25)
[2018-02-10] MEDS: NA CHLORIDE 0.9% 1,000 ML IV SCH ×2 (05:35→18:24)
[2018-02-10] MEDS: INSULIN -REGULAR HUMAN 50 UNIT/0.5 ML ML SQ SCH ×4 (07:30→21:00)
[2018-02-10] MEDS: ISOSORBIDE MONO SR 60 MG TAB PO SCH (10:05)
[2018-02-10] MEDS: LEVOTHYROXINE SOD 0.05 MG TABLET PO SCH (10:05)
[2018-02-10] MEDS: LOSARTAN POTASSIUM 50 MG TABLET PO SCH (10:05)
[2018-02-10] MEDS: FAMOTIDINE 20 MG TAB PO SCH ×2 (10:06→21:32)
[2018-02-10] MEDS: NEBIVOLOL HCL 5 MG TAB PO SCH (10:06)
[2018-02-10] MEDS: AMIODARONE HCL 200 MG TAB PO SCH (10:06)
--- NOTE | 2018-02-10 11:51 | P.PN ---
Date of Service: 02/10/18 (POD#1) S: PATIENT IS DOING QUITE WELL TODAY EATING BREAKFAST AND CONVERSING CALMLY. O: AFEBRILE,, MILDLY HYPERTENSIVE, HEMOGLOBIN 14.5, PAIN INTENSITY REPORTED 6, 0, 6, 0, 0/10. BANDAGE DRY AND INTACT. YVES'S SIGN NEGATIVE. NEUROVASCULAR EXAM INTACT. REVIEW OF X-RAYS SHOW GOOD REDUCTION WITH IM NAIL FIXATION. A: PATIENT'S STARTING A GOOD DAY POSTOP DAY 1. P: PHYSICAL THERAPY WILL WORK WITH THE PATIENT WITH WEIGHT BEARING TOLERATED RIGHT LOWER EXTREMITY USING A WALKER WITH ASSISTANCE. REQUEST FOR INPATIENT REHABILITATION HAS BEEN INITIATED.
--- NOTE | 2018-02-10 13:49 | P.PN ---
Subjective Date of Service: 02/10/18 Chief Complaint: FELL ON RIGHT SIDE Subjective: Improving SURGERY TODAY TAKEN FO RSURGERY TODAY. SP SURGERY DOING WELL. NO CHANGES NO PAIN WILL DO REHAB. RESUME ELIQUIS THAT WILL SERVE BOTH FOR DVT PX AND A FIB. Review of Systems 10-point ROS is otherwise unremarkable Physical Examination - Vital Signs Temperature: 99.4 F Blood Pressure: 166/81 Pulse: 70 Respirations: 18 Pulse Ox (%): 97 - Physical Exam General: Alert, In no apparent distress HEENT: Atraumatic, PERRLA, EOMI Neck: Supple, JVD not distended Respiratory: Clear to auscultation bilaterally, Normal air movement Cardiovascular: Regular rate/rhythm, Normal S1 S2 Gastrointestinal: Normal bowel sounds, No tenderness Musculoskeletal: No tenderness Integumentary: No rashes Neurological: Other (RIGHT HIP SURGERY .) Lymphatics: No axilla or inguinal lymphadenopathy - Studies Medications List Reviewed: Yes Assessment And Plan - Current Problems (Diagnosis) (1) Hip fracture requiring operative repair Onset Date: 02/08/18 Current Visit: Yes Status: Acute Plan: SURGERY IN AM ELIQUIS ON HOLD AFTER THIS AM DOSE 24 HOUR HOLDING SHOULD BE OKAY FOR SURGERY CHECK FOR BMD Echo mild low ef surgery in am. DID WELL WITH SURGERY HPI STABLE. Qualifiers: Encounter type: initial encounter Fracture type: closed Laterality: right Qualified Code(s): S72.001A - Fracture of unspecified part of neck of right femur, initial encounter for closed fracture (2) A-fib Onset Date: 02/08/18 Current Visit: Yes Status: Chronic Plan: CONTROLLED. Qualifiers: Atrial fibrillation type: chronic Qualified Code(s): I48.2 - Chronic atrial fibrillation (3) HTN (hypertension) Onset Date: 02/08/18 Current Visit: Yes Status: Chronic Plan: RAISE LOSARTAN TO 100 MG DAILY REDUCE IV FLUIDS. (4) Preop cardiovascular exam Onset Date: 02/08/18 Current Visit: Yes Status: Acute Plan: MILD TO MODERATE RISK FOR SURGERY FROM AGE AND COMORBIDITIES. HE HAS NO ACUTE CARDIAC SYMPTOMS.
[2018-02-10 14:07] LABS: Absolute Lymphocytes (CBC) 1.6 K/uL (0.7-4.9); Absolute Monocytes 1.5 K/uL (0.1-1.3); Absolute Neutrophil 7.8 K/uL (1.8-8.0); Basophils % 0.5 % (0-1.3); Eosinophils % 0.9 % (0-4.4); Hematocrit 38.7 % (39.6-49.0); MCH 33.1 pg (27.0-35.0); MCV 97.1 fL (80-100); MPV 8.9 fL (7.6-11.3); Monocytes % 13.2 % (3.3-12.3); RBC Red Blood Cell Count 3.98 M/uL (4.33-5.43)
[2018-02-10 14:14] LABS: Potassium 4.1 mmol/L (3.5-5.1)
[2018-02-10] MEDS: APIXABAN 5 MG TABLET PO SCH (21:32)
[2018-02-10] MEDS: ATORVASTATIN 40 MG TAB PO SCH (21:32)
[2018-02-10] MEDS ORDERED: LORAZEPAM 0.5 MG TABLET PO PRN (23:20)
--- NOTE | 2018-02-11 00:30 | PN ---
Date of Progress Note: 02/09/2018 Mr. Leger was admitted by Dr. Stern on 02/07/2018, with a right hip fracture. Dr. Bradley saw h im on 02/08/2018, and he cleared him for surgery. Today, he underwent surgery. No complications. N o arrhythmias. No congestive heart failure. He is known to have an ejection fraction of 45%. We wi ll continue to follow him. He should resume his amiodarone and Eliquis as well as the other medicati on whenever it is okay with Dr. Stern. RODNEY/RICHARD Voice ID: [id number] Report ID: [id number]
[2018-02-11] MEDS: HYDROCODONE/APAP 5/325 MG TAB PO PRN ×3 (02:14→23:53)
[2018-02-11] MEDS: METFORMIN HCL 500 MG TAB PO SCH ×2 (06:17→17:22)
[2018-02-11] MEDS: INSULIN -REGULAR HUMAN 50 UNIT/0.5 ML ML SQ SCH ×4 (07:30→20:36)
--- NOTE | 2018-02-11 07:56 | P.PN ---
Date of Service: 02/11/18 (POD#2) S: PATIENT REMAINS CALM AND COMFORTABLE. LOTS OF ZEROS ON PAIN CHART. NO FENTANYL USED IN 2D, ONLY TWO DOSES OF NORCO 7.5 SINCE SURGERY. O: AFEBRILE, VSS, HEMOGLOBIN 13.2 YEST.. BANDAGE DRY AND INTACT. YVES'S SIGN NEGATIVE. NEUROVASCULAR EXAM INTACT. SLOW START TO PT YESTERDAY. A: PATIENT DOING WELL POSTOP DAY 2. P: PHYSICAL THERAPY WILL CONTINUE TO WORK WITH THE PATIENT WITH WEIGHT BEARING TOLERATED RIGHT LOWER EXTREMITY USING A WALKER WITH ASSISTANCE. OOB TO CHAIR IMPORTANT FOR PULMONARY FUNCTION IS INCENTIVE SPIROMETRY.
[2018-02-11] MEDS: NEBIVOLOL HCL 5 MG TAB PO SCH (09:00)
[2018-02-11] MEDS ORDERED: HOME MED 1 EA UNK (Valsartan/Hydrochlorothiazide [Valsartan-Hctz 320-12.5 Mg Tab] 1 TAB) PO SCH (09:00)
[2018-02-11] MEDS: FAMOTIDINE 20 MG TAB PO SCH ×2 (10:04→20:35)
[2018-02-11] MEDS: AMIODARONE HCL 200 MG TAB PO SCH (10:05)
[2018-02-11] MEDS: ISOSORBIDE MONO SR 60 MG TAB PO SCH (10:05)
[2018-02-11] MEDS: LEVOTHYROXINE SOD 0.05 MG TABLET PO SCH (10:05)
[2018-02-11] MEDS: APIXABAN 5 MG TABLET PO SCH ×2 (10:05→20:35)
[2018-02-11] MEDS: LOSARTAN POTASSIUM 50 MG TABLET PO SCH (10:05)
--- NOTE | 2018-02-11 10:07 | P.PN ---
Subjective Date of Service: 02/11/18 Chief Complaint: FELL ON RIGHT SIDE Subjective: Improving SURGERY TODAY TAKEN FO RSURGERY TODAY. SP SURGERY DOING WELL. NO CHANGES NO PAIN WILL DO REHAB. RESUME ELIQUIS THAT WILL SERVE BOTH FOR DVT PX AND A FIB. STAYS CONFUSED WITH HISTORY OF DEMENTIA. MEDS TRIED IN THE PAST DID NOT HELP PER FAMILY. Review of Systems 10-point ROS is otherwise unremarkable Musculoskeletal: As per HPI Physical Examination - Vital Signs Temperature: 97.3 F Blood Pressure: 177/85 Pulse: 69 Respirations: 18 Pulse Ox (%): 96 - Physical Exam General: Alert, In no apparent distress, Demented (MILD TO MOD, TAKES OFF ALL THE CLOTHES.) HEENT: Atraumatic, PERRLA, EOMI Neck: Supple, JVD not distended Respiratory: Clear to auscultation bilaterally, Normal air movement Cardiovascular: Regular rate/rhythm, Normal S1 S2 Gastrointestinal: Normal bowel sounds, No tenderness Musculoskeletal: No tenderness Integumentary: No rashes Neurological: Normal speech, Normal tone, Normal affect Lymphatics: No axilla or inguinal lymphadenopathy - Studies Medications List Reviewed: Yes Assessment And Plan - Current Problems (Diagnosis) (1) Hip fracture requiring operative repair Onset Date: 02/08/18 Current Visit: Yes Status: Acute Plan: SURGERY IN AM ELIQUIS ON HOLD AFTER THIS AM DOSE 24 HOUR HOLDING SHOULD BE OKAY FOR SURGERY CHECK FOR BMD Echo mild low ef surgery in am. DID WELL WITH SURGERY HPI STABLE. REHAB TRANSFER PENDING. Qualifiers: Encounter type: initial encounter Fracture type: closed Laterality: right Qualified Code(s): S72.001A - Fracture of unspecified part of neck of right femur, initial encounter for closed fracture (2) A-fib Onset Date: 02/08/18 Current Visit: Yes Status: Chronic Plan: CONTROLLED. Qualifiers: Atrial fibrillation type: chronic Qualified Code(s): I48.2 - Chronic atrial fibrillation (3) HTN (hypertension) Onset Date: 02/08/18 Current Visit: Yes Status: Chronic Plan: RAISE LOSARTAN TO 100 MG DAILY REDUCE IV FLUIDS. RAISE BYSTOLIC STOP IV FLUIDS. (4) Preop cardiovascular exam Onset Date: 02/08/18 Current Visit: Yes Status: Acute Plan: MILD TO MODERATE RISK FOR SURGERY FROM AGE AND COMORBIDITIES. HE HAS NO ACUTE CARDIAC SYMPTOMS.
--- NOTE | 2018-02-11 12:51 | OP ---
Date of Procedure: 02/09/2018 Surgeon: Ryan White MD Make Ready Mechanic: KRYSTAL Fong, who gave necessary professional nursing assistant services throughout the case. Preoperative Diagnosis: Closed intertrochanteric fracture, right hip, displaced. Postoperative Diagnosis: Closed intertrochanteric fracture, right hip, displaced. Primary Procedure: Intramedullary nail fixation, right hip intertrochanteric fracture. Indications: This 77-year-old male fell suffering an impacted fracture of his right intertrochanteri c hip. He has been made aware of the risks and benefits, and his daughter has given permission for e lective intramedullary nail fixation for the right hip intertrochanteric fracture. After discussion of risks and benefits with all questions answered. Technique: The patient was taken to the operating room. The time-out was called, all pertinent fact s were discussed. It was decided to proceed with the operation as posted. The patient was given a g eneral anesthetic with LMA by Dr. Austin Erickson, anesthesiologist. The patient was then moved to the fracture table and positioned for use of the C-arm between the legs. Prepping of the right hip was c arried out from rib cage to below the right knee and a vertical isolation drape were applied. C-arm verified excellent reduction of the fracture in the fracture table traction. With C-arm verification , the proximal incision above the greater trochanter was made and the cannulated awl was twisted thro ugh the tip of the greater trochanter into the intertrochanteric space. A guidewire was passed. A r eamer was used to 14.5, so the 13 mm diameter nail could be used. The hip nail chosen was 125 degree s angle, 13 x 180 mm length. The 10.5 x 105 mm lag screw was placed in from the lateral approach usi ng the outrigger jig for positioning the incision and insertion of a guidewire followed by reaming an d insertion of the lag screw. An anti-rotational screw was positioned parallel to the lag screw 85 m m in length. The third incision made was a centimeter in length and allowed insertion of the 5 x 38 mm cortical screw as the interlocking screw for the distal part of the nail. The puncture wounds wer e injected with 30 mL of 0.25% Marcaine with epinephrine and closed using #1 Vicryl for fascial layer s, 2-0 Vicryl for subcu, both with interrupted sutures, and skin vikash for the skin. The incisions were covered with 2 Aquacel bandages. Estimated blood loss was 200 mL. The patient was carefully r emoved from the fracture table to the bed and taken to the recovery room having tolerated this proced ure well. Implants consisted of hip nail 125 degree 13 x 180 mm; lag screw 10.5 x 105 mm; anti-rotational screw 85 mm; cortical screw for distal interlocking 5 x 38 mm. DANNA/RICHARD Voice ID: [id number] Report ID: [id number]
[2018-02-11] MEDS: ATORVASTATIN 40 MG TAB PO SCH (20:35)
[2018-02-12] MEDS: METFORMIN HCL 500 MG TAB PO SCH ×2 (05:24→19:13)
[2018-02-12] MEDS: INSULIN -REGULAR HUMAN 50 UNIT/0.5 ML ML SQ SCH ×4 (07:30→22:35)
[2018-02-12] MEDS: LEVOTHYROXINE SOD 0.05 MG TABLET PO SCH (09:59)
[2018-02-12] MEDS: FAMOTIDINE 20 MG TAB PO SCH ×2 (10:00→20:49)
[2018-02-12] MEDS: LOSARTAN POTASSIUM 50 MG TABLET PO SCH (10:00)
[2018-02-12] MEDS: ISOSORBIDE MONO SR 60 MG TAB PO SCH (10:00)
[2018-02-12] MEDS: APIXABAN 5 MG TABLET PO SCH ×2 (10:00→20:49)
[2018-02-12] MEDS: AMIODARONE HCL 200 MG TAB PO SCH (10:00)
[2018-02-12] MEDS: NEBIVOLOL HCL 20 MG TABLET PO SCH (10:01)
--- NOTE | 2018-02-12 10:55 | P.PN ---
Date of Service: 02/12/18 (POD#3) S: PATIENT SITTING UP IN BEDSIDE CHAIR READING NEWSPAPER THIS AM. LOTS OF ZEROS ON PAIN CHART. NO C/O PAIN, SAYS HE HAS BEEN WALKING WITH PT. O: AFEBRILE, VSS, BANDAGE DRY AND INTACT. YVES'S SIGN NEGATIVE. NEUROVASCULAR EXAM INTACT. PT INDICATES PATIENT WENT 12 FEET WITH RW WITH IMPROVED EFFORT AND LESS DISCOMFORT. A: PATIENT DOING WELL POSTOP DAY 3. P: PHYSICAL THERAPY WILL CONTINUE TO WORK WITH THE PATIENT WITH WEIGHT BEARING TOLERATED RIGHT LOWER EXTREMITY USING A WALKER WITH ASSISTANCE. REHAB ADMIT UNDER CONSIDERATION.
[2018-02-12] MEDS: HYDROCODONE/APAP 5/325 MG TAB PO PRN (12:57)
[2018-02-12] MEDS: ATORVASTATIN 40 MG TAB PO SCH (20:49)
[2018-02-13] MEDS: METFORMIN HCL 500 MG TAB PO SCH ×2 (05:59→18:52)
[2018-02-13] MEDS ORDERED: cloNIDine HCl 0.1 MG TAB PO PRN (06:59)
[2018-02-13] MEDS: INSULIN -REGULAR HUMAN 50 UNIT/0.5 ML ML SQ SCH ×4 (07:30→21:00)
[2018-02-13] MEDS: LEVOTHYROXINE SOD 0.05 MG TABLET PO SCH (09:29)
[2018-02-13] MEDS: AMLODIPINE 5 MG TAB PO SCH (09:29)
[2018-02-13] MEDS: NEBIVOLOL HCL 20 MG TABLET PO SCH (09:30)
[2018-02-13] MEDS: FAMOTIDINE 20 MG TAB PO SCH ×2 (09:31→21:14)
[2018-02-13] MEDS: LOSARTAN POTASSIUM 50 MG TABLET PO SCH (09:31)
[2018-02-13] MEDS: AMIODARONE HCL 200 MG TAB PO SCH (09:32)
[2018-02-13] MEDS: MEMANTINE HCL 10 MG TABLET PO SCH ×2 (09:32→21:15)
[2018-02-13] MEDS: ISOSORBIDE MONO SR 60 MG TAB PO SCH (09:32)
[2018-02-13] MEDS: APIXABAN 5 MG TABLET PO SCH ×2 (09:34→21:14)
--- NOTE | 2018-02-13 12:22 | P.DS ---
Admission Date: 02/07/18 Discharge Date: 02/13/18 Disposition: TRANSFER TO INPATIENT REHAB Discharge Condition: FAIR Reason for Admission: FELL ON RIGHT SIDE - Problems (1) Hip fracture requiring operative repair Onset Date: 02/08/18 Current Visit: Yes Status: Acute Qualifiers: Encounter type: initial encounter Fracture type: closed Laterality: right Qualified Code(s): S72.001A - Fracture of unspecified part of neck of right femur, initial encounter for closed fracture (2) A-fib Onset Date: 02/08/18 Current Visit: Yes Status: Chronic Qualifiers: Atrial fibrillation type: chronic Qualified Code(s): I48.2 - Chronic atrial fibrillation (3) HTN (hypertension) Onset Date: 02/08/18 Current Visit: Yes Status: Chronic (4) Preop cardiovascular exam Onset Date: 02/08/18 Current Visit: Yes Status: Acute Brief History of Present Illness: MR. FERGUSON HAS A FIB, HTN, MILD MEMORY LOSS, COMES WITH FALL ON R SIDE, TRIPPED ON AN ELEVATION IN THE YARD AND BROKE R HIP. HE HAS DONE BETTER BUT VERY DEMENTED. REHAB HAS NOT TAKEN HIMYET HE IS STABLE MEDICLALLY TO GO TO REHAB OR OR. Vital Signs/Physical Exam: Temp Pulse Resp BP Pulse Ox 98.7 F 71 18 167/84 H 97 02/13/18 08:00 02/13/18 09:30 02/13/18 08:00 02/13/18 09:30 02/13/18 08:00 Laboratory Data at Discharge: WBC 11.0 K/uL (4.3-10.9) H 02/10/18 13:49 Hgb 13.2 g/dL (13.6-17.9) L 02/10/18 13:49 Hct 38.7 % (39.6-49.0) L 02/10/18 13:49 Plt Count 198 K/uL (152-406) 02/10/18 13:49 PT 14.4 SECONDS (9.5-12.5) H 02/09/18 08:46 INR 1.22 02/09/18 08:46 APTT 31.2 SECONDS (24.3-36.9) 02/07/18 16:30 Sodium 140 mmol/L (136-145) 02/10/18 13:49 Potassium 4.1 mmol/L (3.5-5.1) 02/10/18 13:49 BUN 15 mg/dL (7-18) 02/10/18 13:49 Creatinine 1.20 mg/dL (0.55-1.3) 02/10/18 13:49 Glucose 166 mg/dL (74-106) H 02/10/18 13:49 Magnesium 2.1 mg/dL (1.8-2.4) 02/10/18 13:49 Total Bilirubin 1.1 mg/dL (0.2-1.0) H 02/07/18 16:30 AST 33 U/L (15-37) 02/07/18 16:30 ALT 40 U/L (12-78) 02/07/18 16:30 Alkaline Phosphatase 68 U/L (45-117) 02/07/18 16:30 Troponin I 0.03 ng/mL (0.0-0.045) 02/08/18 00:25 Home Medications: Amiodarone HCl/D5w [Amiodarone 150 mg/100 ml-D5w] 200 mg PO DAILY 02/07/18 Apixaban [Eliquis] 5 mg PO BID 02/07/18 Atorvastatin Calcium [Lipitor] 40 mg PO BEDTIME 02/07/18 Isosorbide Mononitrate [Isosorbide Mononitrate ER] 60 mg PO DAILY 02/07/18 Levothyroxine [Synthroid*] 25 mcg PO DAILY 02/07/18 Metformin HCl 500 mg PO BID 6AM 6PM 02/07/18 Nebivolol HCl [Bystolic*] 10 mg PO DAILY 02/07/18
--- NOTE | 2018-02-13 13:26 | P.PN ---
Date of Service: 02/13/18 S: PATIENT COMFORTABLE. NO C/O PAIN, SAYS HE HAS BEEN WALKING WITH PT. O: AFEBRILE, VSS, BANDAGE DRY AND INTACT. YVES'S SIGN NEGATIVE. NEUROVASCULAR EXAM INTACT. PT INDICATES PATIENT WENT 10 FEET AND 15 FEET w/FWW REQUIRING CONSTANT CUEING. A: PATIENT MAKING SOME PROGRESS DAY 4. P: PHYSICAL THERAPY WILL CONTINUE TO WORK WITH THE PATIENT WITH WEIGHT BEARING TOLERATED RIGHT LOWER EXTREMITY USING A WALKER WITH ASSISTANCE. NO REPORT FROM REHAB YET.
[2018-02-13] MEDS: HYDROCODONE/APAP 5/325 MG TAB PO PRN (21:14)
[2018-02-13] MEDS: ATORVASTATIN 40 MG TAB PO SCH (21:14)
[2018-02-14] MEDS: METFORMIN HCL 500 MG TAB PO SCH ×2 (06:00→17:00)
[2018-02-14] MEDS: INSULIN -REGULAR HUMAN 50 UNIT/0.5 ML ML SQ SCH ×4 (07:30→20:32)
[2018-02-14] MEDS: NEBIVOLOL HCL 20 MG TABLET PO SCH (09:12)
[2018-02-14] MEDS: LOSARTAN POTASSIUM 50 MG TABLET PO SCH (09:12)
[2018-02-14] MEDS: LEVOTHYROXINE SOD 0.05 MG TABLET PO SCH (09:12)
[2018-02-14] MEDS: AMIODARONE HCL 200 MG TAB PO SCH (09:13)
[2018-02-14] MEDS: ISOSORBIDE MONO SR 60 MG TAB PO SCH (09:13)
[2018-02-14] MEDS: FAMOTIDINE 20 MG TAB PO SCH ×2 (09:14→20:31)
[2018-02-14] MEDS: APIXABAN 5 MG TABLET PO SCH ×2 (09:14→20:31)
[2018-02-14] MEDS: MEMANTINE HCL 10 MG TABLET PO SCH ×2 (09:14→20:30)
[2018-02-14] MEDS: AMLODIPINE 5 MG TAB PO SCH (09:14)
[2018-02-14] MEDS: HYDROCODONE/APAP 5/325 MG TAB PO PRN (10:38)
--- NOTE | 2018-02-14 13:39 | P.PN ---
Date of Service: 02/14/18 (POD#5) S: PATIENT COMFORTABLE IN BED. NO C/O PAIN, SAYS HE HAS BEEN WALKING WITH PT THIS MORNING. O: AFEBRILE, VSS, BANDAGE DRY AND INTACT. YVES'S SIGN NEGATIVE. NEUROVASCULAR EXAM INTACT. PATIENT WAS ABLE TO SIT TO STAND TO ROLLING WALKER WITH MIN. ASSIST. WENT 60' x 2 WITH CUEING AND REST STOP IN WC. A: PATIENT MAKING PROGRESS POD #5. P: PHYSICAL THERAPY WILL CONTINUE TO WORK WITH THE PATIENT WITH WEIGHT BEARING TOLERATED RIGHT LOWER EXTREMITY USING A WALKER WITH ASSISTANCE. REHAB GAVE TUESDAY TALE OF KIN, ARRANGEMENTS STARTED FOR SNF PLACEMENT.
[2018-02-14] MEDS: ATORVASTATIN 40 MG TAB PO SCH (20:31)
[2018-02-15] MEDS: HYDROCODONE/APAP 5/325 MG TAB PO PRN ×2 (04:40→10:45)
[2018-02-15] MEDS: METFORMIN HCL 500 MG TAB PO SCH (05:35)
[2018-02-15] MEDS: INSULIN -REGULAR HUMAN 50 UNIT/0.5 ML ML SQ SCH ×2 (07:30→11:30)
[2018-02-15 08:21] VITALS: BP 160/79; TEMP 97.6
[2018-02-15 08:25] VITALS: O2SAT 98
[2018-02-15] MEDS: AMLODIPINE 5 MG TAB PO SCH (08:52)
[2018-02-15] MEDS: MEMANTINE HCL 10 MG TABLET PO SCH (08:52)
[2018-02-15] MEDS: FAMOTIDINE 20 MG TAB PO SCH (08:52)
[2018-02-15] MEDS: LOSARTAN POTASSIUM 50 MG TABLET PO SCH (08:52)
[2018-02-15] MEDS: LEVOTHYROXINE SOD 0.05 MG TABLET PO SCH (08:53)
[2018-02-15] MEDS: AMIODARONE HCL 200 MG TAB PO SCH (08:53)
[2018-02-15] MEDS: NEBIVOLOL HCL 20 MG TABLET PO SCH (09:00)
[2018-02-15] MEDS: ISOSORBIDE MONO SR 60 MG TAB PO SCH (09:00)
[2018-02-15] MEDS: APIXABAN 5 MG TABLET PO SCH (09:01)
--- NOTE | 2018-02-15 21:35 | P.DS ---
Admission Date: 02/07/18 Discharge Date: 02/15/18 Disposition: TRANSFER TO [facility] Discharge Condition: FAIR Reason for Admission: FELL ON RIGHT SIDE - Problems (1) Hip fracture requiring operative repair Onset Date: 02/08/18 Status: Acute Qualifiers: Encounter type: initial encounter Fracture type: closed Laterality: right Qualified Code(s): S72.001A - Fracture of unspecified part of neck of right femur, initial encounter for closed fracture (2) A-fib Onset Date: 02/08/18 Status: Chronic Qualifiers: Atrial fibrillation type: chronic Qualified Code(s): I48.2 - Chronic atrial fibrillation (3) HTN (hypertension) Onset Date: 02/08/18 Status: Chronic (4) Preop cardiovascular exam Onset Date: 02/08/18 Status: Acute Brief History of Present Illness: MR. FERGUSON HAS A FIB, HTN, MILD MEMORY LOSS, COMES WITH FALL ON R SIDE, TRIPPED ON AN ELEVATION IN THE YARD AND BROKE R HIP. HE HAS DONE BETTER BUT VERY DEMENTED. REHAB HAS NOT TAKEN HIMYET HE IS STABLE MEDICLALLY TO GO TO REHAB OR [place]. MR TRAYLOR HAS DONE WELL SP SURGERY. HE IS NOT ABLE TO COOPERATE WITH PT HE HAS DEMENTIA. HE IS DCED TO PENITENTIARY. Vital Signs/Physical Exam: Temp Pulse Resp BP Pulse Ox 97.6 F 70 18 160/79 H 96 02/15/18 08:00 02/15/18 09:00 02/15/18 08:00 02/15/18 09:00 02/15/18 08:00 Laboratory Data at Discharge: WBC 11.0 K/uL (4.3-10.9) H 02/10/18 13:49 Hgb 13.2 g/dL (13.6-17.9) L 02/10/18 13:49 Hct 38.7 % (39.6-49.0) L 02/10/18 13:49 Plt Count 198 K/uL (152-406) 02/10/18 13:49 PT 14.4 SECONDS (9.5-12.5) H 02/09/18 08:46 INR 1.22 02/09/18 08:46 APTT 31.2 SECONDS (24.3-36.9) 02/07/18 16:30 Sodium 140 mmol/L (136-145) 02/10/18 13:49 Potassium 4.1 mmol/L (3.5-5.1) 02/10/18 13:49 BUN 15 mg/dL (7-18) 02/10/18 13:49 Creatinine 1.20 mg/dL (0.55-1.3) 02/10/18 13:49 Glucose 166 mg/dL (74-106) H 02/10/18 13:49 Magnesium 2.1 mg/dL (1.8-2.4) 02/10/18 13:49 Total Bilirubin 1.1 mg/dL (0.2-1.0) H 02/07/18 16:30 AST 33 U/L (15-37) 02/07/18 16:30 ALT 40 U/L (12-78) 02/07/18 16:30 Alkaline Phosphatase 68 U/L (45-117) 02/07/18 16:30 Troponin I 0.03 ng/mL (0.0-0.045) 02/08/18 00:25 Home Medications: Amiodarone HCl/D5w [Amiodarone 150 mg/100 ml-D5w] 200 mg PO DAILY 02/07/18 Apixaban [Eliquis] 5 mg PO BID 02/07/18 Atorvastatin Calcium [Lipitor] 40 mg PO BEDTIME 02/07/18 Isosorbide Mononitrate [Isosorbide Mononitrate ER] 60 mg PO DAILY 02/07/18 Levothyroxine [Synthroid*] 25 mcg PO DAILY 02/07/18 Metformin HCl 500 mg PO BID 6AM 6PM 02/07/18 Nebivolol HCl [Bystolic*] 10 mg PO DAILY 02/07/18 Amlodipine [Norvasc*] 5 mg PO DAILY tab 02/15/18 Losartan Potassium [Cozaar*] 100 mg PO DAILY tablet 02/15/18 Memantine HCl [Namenda*] 5 mg PO BID tablet 02/15/18 Followup: Ryan White MD [ACTIVE - CAN ADMIT] - 02/20/18 (10-14 days after surgery to re xray and to take out vikash)
== END 2018-02-15 13:40 | DRG 482 ==
LOC: ER 15:23 → ERHOLD 18:00 → 2ND 19:34
PROVIDERS: ADMIT Internal Medicine; ATTEND Internal Medicine
PROC: 0QS636Z Reposition Right Upper Femur with Intramedullary Internal Fixation Device, Percutaneous Approach (ICD-10-PCS; principal; 2018-02-09 12:45)
DX: S72.141A Displaced intertrochanteric fracture of right femur, initial encounter for closed fracture (principal); F06.8 Other specified mental disorders due to known physiological condition; F03.90 Unspecified dementia, unspecified severity, without behavioral disturbance, psychotic disturbance, mood disturbance, and anxiety; I48.2 Chronic atrial fibrillation; I10 Essential (primary) hypertension; I25.10 Atherosclerotic heart disease of native coronary artery without angina pectoris; I25.2 Old myocardial infarction; E11.9 Type 2 diabetes mellitus without complications; W01.0XXA Fall on same level from slipping, tripping and stumbling without subsequent striking against object, initial encounter; Z88.0 Allergy status to penicillin; Z88.8 Allergy status to other drugs, medicaments and biological substances; Z79.84 Long term (current) use of oral hypoglycemic drugs; Y92.096 Garden or yard of other non-institutional residence as the place of occurrence of the external cause; Z86.73 Personal history of transient ischemic attack (TIA), and cerebral infarction without residual deficits; Z79.01 Long term (current) use of anticoagulants; Z95.1 Presence of aortocoronary bypass graft; Z95.810 Presence of automatic (implantable) cardiac defibrillator
CPT/HCPCS: 36415; 71045; 72170; 73530; 80048; 80076; 81003; 82550; 82553; 82962; 83735; 83880; 84484; 85014; 85018; 85025; 85610; 85730; 86850; 86900; 86901; 93005; 93306; 96361; 96374; 96375; 97163; 99285; J0690; J2250; J2405; J3010; J7030